=== PATIENT | female | born 1975 | race Caucasian/White ===

== ENCOUNTER 2024-12-20 23:13 | Inpatient (IN) | payer OTHER, SELFPAY ==
--- NOTE | ~2024-12-20 | CT_ITS ---
CT HEAD NON-CONTRAST Clinical History: left eye visual change Comparison: None Technique: Unenhanced axial images skull base to vertex Coronal, sagittal reformats CT images acquired with automatic exposure control for dose reduction DLP: 681 mGy-cm Findings: Sulci, ventricles: Unremarkable. No intracerebral hemorrhage. No evidence acute territorial infarct. No mass effect, midline shift. Bony calvarium intact. Visualized paranasal sinuses: Clear. Mastoid air cells: Clear. IMPRESSION: 1. No acute intracranial findings. Reviewed, dictated and finalized at location R.
[2024-12-20 23:07] VITALS: BP 119/89; PULSE 84; RESP 20; TEMP 37; O2SAT 100
--- OUTSIDE RECORDS SUMMARY | 2024-12-21 00:42 | XMS_ITS | Clinical Summary ---
Author Organization [facility] Address [facility] [place] [address] Care Team Providers Care 1St Pressman Name Role Phone None, Provider MD Primary Care Provider Unavaila ble Allergies No known active allergies Medications pantoprazole EC (PROTONIX) 40 MG tablet Take 1 tablet (40 mg total) by mouth daily. 30 tablet 07/05/2022 Active Active Problems Problem Noted Date Diagnosed Date Ingestion of disk battery, initial encounter Foreign body in stomach, initial encounter 07/03 Overview (07/04/2022): Added automatically from request for surgery [id number] Social History Tobacco Use Types Packs/Day Years Used Date Smoking Tobacco: Former Cigarettes 0.5 5 Smokeless Tobacco: Never Comments:Quit 2 months ago Humiliation, Afraid, Rape, and Kick questionnair e Answer Date Recorded Within the last year, have y ou been afraid of your partner or ex-partner? No 07/04/2022 Within the last year, have y ou been humiliated or emotionally abused in other ways by your partner or ex-partner? No Within the last year, have y ou been kicked, hit, slapped, or otherwise physically hurt by your partner or ex-partner? No 07/04/2022 Within the last year, have y ou been raped or forced to have any kind of sexual activity by your partner or ex-partner? No 07/04/2022 Overall Financial Resource Strain (CARDIA) Answe r Date Recorded How hard is it for you to pa y for the very basics like food, housing, medical care, and heating? Somewhat hard 07/04/2022 Hunger Vital Sign Answer Date Recorded Within the past 12 months, y ou worried that your food would run out before you got the money to buy more. Never true 07/04/19 23 Within the past 12 months, t he food you bought just didn't last and you didn't have money to get more. Never true 07/03/2022 PRAPARE - Transportation Answer Date Re corded In the past 12 months, has l ack of transportation kept you from medical appointments or from getting medications? No 06/07 In the past 12 months, has l ack of transportation kept you from meetings, work, or from getting things needed for daily living? No 07/04/2022 Housing Stability Vital Sign Answer Kirk e Recorded In the last 12 months, was t here a time when you were not able to pay the mortgage or rent on time? No 07/04/2022 In the last 12 months, how many places have you lived? 1 07/04/2022 In the last 12 months, was t here a time when you did not have a steady place to sleep or slept in a m[facility] (including now)? No 07/04/2022 Comments Unknown Sex and Gender Information Value Date Recorded Sex Assigned at Not on file Legal Sex Female 7:34 PM CDT Gender Identity Not on file Sexual Orientation Not on file Last Filed Vital Signs Vital Sign Reading Time Taken Comments Blood Pressure 121/67 07/12/2022 1:30 AM CDT Pulse 70 07/12/2022 12:42 AM CDT Temperature 36.8 C (98.2 F) 07/12/2022 12:42 AM CDT Respiratory Rate 20 07/12/2022 12:42 AM CDT Oxygen Saturation 100% 07/12/2022 12:50 AM CDT Inhaled Oxygen Concentration - - Weight 53.1 kg (117 lb) 07/12/2022 12:42 AM CDT Height 160 cm (5' 3) 07/12/2022 12:42 AM CDT Body Mass Index 20.73 07/12/2022 12:42 AM CDT Plan of Treatment Health Maintenance Due Date Last Done Comments Cervical Cancer Screening Pa p Smear (Age 30 to 64) Every 3 Years 1975 Colorectal Cancer Screening Colonoscopy (10 Years) 1975 Annual Physical 1978 Hepatitis C 1993 DTaP, Tdap and Td Vaccines ( 1 - Tdap) 1994 Hepatitis B Vaccines (1 of 3 - 19+ 3-dose series) 1994 Cervical Cancer Screening Pa p with HPV Testing (Age 30 to 64) Every 5 Years 2005 Cervical Cancer Screening with HPV 2005 Mammogram Screening 2015 COVID-19 Vaccine ( - 2023-2 5 season) 2024 Influenza Adult (#1) 2024 Hepatitis A Vaccines Aged Out No long er eligible based on patient's age to complete this topic Meningococcal B Vaccine Aged Out No l onger eligible based on patient's age to complete this topic Meningococcal Vaccine Aged Out No shashi charles eligible based on patient's age to complete this topic Pneumococcal Vaccine: Pediat rics (0 to 5 Years) and At-Risk Patients (6 to 49 Years) Aged Out No longer eligible b ased on patient's age to complete this topic RSV Immunizations Under 20 Months Aged Out No longer eligible based on patient's age to complete this topic Insurance [employer] Care Teams 1[facility] Pressman Relationship Specialty Start Date End Date None, Provider, MD PCP - General UNKNOWN PHYSICIAN SPECIALTY 07/03/22
--- NOTE | 2024-12-21 01:08 | ED_ITS ---
HPI - General Adult General Chief complaint: Eye Problems Stated complaint: Decreased vision L eye since 1800 Time Seen by Provider: 12/21/24 00:26 History of Present Illness HPI narrative: Patient a 49-year-old female who presents emergency department with chief complaint of possible MS flare patient reports that she has history of MS and is followed by Neurology in [place] the patient states she was in town and was incarcerated by August guillen patient reports that she has had changes in vision out of her left eye similar to whenever she has had exacerbations with her MS Related Data Allergies Allergy/AdvReac Type Severity Reaction Status Date / Time No Known Allergies Allergy Verified 12/20/24 23:23 Review of Systems 2 Review of Systems: A 10 system review of systems was completed on the patient and is negative except for what is stated in the HPI. Nursing and ancillary documentation was reviewed. Exam 2 Narrative: GENERAL: Well-appearing, well-nourished, and in no acute distress. HEAD: Normocephalic, atraumatic. EYES: PERRLA and EOMI. No corneal abrasion present interocular pressure 12 bedside ultrasound showed no retinal detachment ENT: Nares clear, no rhinorrhea or epistaxis. Mucous membranes moist. NECK: Supple. CHEST: Clear to auscultation. No respiratory distress. HEART: Regular rate and rhythm. No murmur heard. Normal peripheral pulses. ABDOMEN: Soft, nontender, nondistended, normal active bowel sounds. EXTREMITIES: Normal range of motion. No edema. SKIN: Warm, dry, no rash. NEURO: No focal deficits. Alert and oriented x3. PSYCH: Normal mood and affect. Course Vital Signs Vital signs: Vital Signs Temperature 37.0 C 12/20/24 23:07 Pulse Rate 84 12/20/24 23:07 Respiratory Rate 20 12/20/24 23:07 Blood Pressure 119/89 12/20/24 23:07 Pulse Oximetry 100 12/20/24 23:07 Oxygen Delivery Room Air 12/20/24 23:07 Temperature 37.0 C 12/20/24 23:07 Pulse Rate 84 12/20/24 23:07 Respiratory Rate 20 12/20/24 23:07 Blood Pressure 119/89 12/20/24 23:07 Pulse Oximetry 100 12/20/24 23:07 Oxygen Delivery Room Air 12/20/24 23:07 Medical Decision Making [facility] Narrative Medical decision making narrative: Differential diagnosis includes acute exacerbation of MS, visual changes, The logical exam showed no evidence of acute angle closure glaucoma no evidence of corneal abrasion The case was discussed with neurology who recommended starting IV steroids patient was given 1 g Solu-Medrol in the emergency department will be started on daily IV Solu-Medrol case was discussed with the hospitalist for admission and neuro consult Vital Signs Vital Signs: Vital Signs Temperature 37.0 C 12/20/24 23:07 Pulse Rate 84 12/20/24 23:07 Respiratory Rate 20 12/20/24 23:07 Blood Pressure 119/89 12/20/24 23:07 Pulse Oximetry 100 12/20/24 23:07 Oxygen Delivery Room Air 12/20/24 23:07 Temperature 37.0 C 12/20/24 23:07 Pulse Rate 84 12/20/24 23:07 Respiratory Rate 20 12/20/24 23:07 Blood Pressure 119/89 12/20/24 23:07 Pulse Oximetry 100 12/20/24 23:07 Oxygen Delivery Room Air 12/20/24 23:07 Lab Data 12/21/24 01:29 12/21/24 01:29 Labs: Lab Results 12/21/24 Range/Units 01:29 WBC 8.1 (4.5-10.0) K/mm3 RBC 4.05 L (4.2-5.4) M/mm3 Hgb 12.4 (12.0-15.0) g/dL Hct 37.9 (37.0-47.0) % MCV 93.6 (80-100) fl MCH 30.6 (26-34) pg MCHC 32.7 (32-36) g/dl RDW 13.2 (11.5-14.5) % Plt Count 292 (150-375) k/mm3 MPV 9.0 (7.4-10.4) fl Immature Gran % (Auto) 0.2 (0-0.5) % Neut % (Auto) 74.6 H (45.5-73.1) % Lymph % (Auto) 18.0 L (18.3-44.2) % [place] % (Auto) 6.5 (2.6-8.5) % Eos % (Auto) 0.2 (0-4.4) % Baso % (Auto) 0.5 (0.2-1.2) % Lymph # (Auto) 1.45 (0.9-3.2) K/mm3 [place] # (Auto) 0.5 (0.1-0.6) K/mm3 Eos # (Auto) 0.0 (0-0.3) K/mm3 Baso # (Auto) 0.0 (0.0-0.1) K/mm3 Abs Immat Gran (auto) 0.02 (0.00-0.031) K/mm3 Absolute Neuts (auto) 6.0 (1.3-6.7) K/mm3 Absolute Nucleated RBC 0.000 (0.0-0.012) K/mm3 Nucleated RBC % 0.0 (0.0-0.2) % ESR 15 (0-20) mm/hr Sodium 139 (137-145) mmol/L Potassium 4.0 (3.4-5.0) mmol/L Chloride 105 (98-107) mmol/L Carbon Dioxide 27 (22-30) mmol/L Anion Gap 7 (4-12) mmol/L BUN 14 (7-17) mg/dL Creatinine 0.66 L (0.7-1.0) mg/dL Estim Creat Clear Calc 73 ml/min Estimated GFR > 60 (59 - ) Glucose 100 (65-110) mg/dL Calcium 8.5 (8.4-10.2) mg/dL Magnesium 2.4 H (1.6-2.3) mg/dL Total Bilirubin 0.2 (0.2-1.3) mg/dL AST 21 (14-36) U/L ALT 16 (6-35) U/L Alkaline Phosphatase 67 (38-126) U/L C-Reactive Protein < 0.5 (<1.0) mg/dL Total Protein 6.5 (6.3-8.2) g/dL Albumin 3.8 (3.5-5.1) g/dL Urine Color Yellow (Yellow) Urine Appearance Cloudy H (Clear) Urine pH >=9.0 H (5.0-9.0) Ur Specific Section 1.029 (1.001-1.035) Urine Protein 1+ H (Negative) mg/dL Urine Glucose (UA) Negative (Negative) mg/dL Urine Ketones Trace H (Negative) mg/dL Ur Blood (Man) 2+ H (Negative) Urine Nitrate Negative (Negative) Urine Bilirubin Negative (Negative) Urine Urobilinogen 1.0 (<2.0) mg/dL Leukocyte Esterase Rfl 1+ H (Negative) THAI/UL Urine RBC 6-10 H (0-2) /hpf Urine WBC 6-10 H (0-3) /hpf Ur Squamous Epith Cells Moderate (Few) /hpf Urine Bacteria None seen /hpf Urine Casts 0-2 Discharge Plan Discharge Clinical Impression: Exacerbation of multiple sclerosis Patient Disposition: Still a Patient Condition: Stable Patient Language: Danish Follow-up/Referrals: UNKNOWN,DOCTOR [Primary Care Provider] Time of Disposition: 02:24
[2024-12-21 01:35] LABS: Hematocrit 37.9 % (37.0-47.0); Hemoglobin 12.4 g/dL (12.0-15.0); Immature Granulocyte Percent A 0.2 % (0-0.5); Lymphocytes Absolute Auto 1.45 K/mm3 (0.9-3.2); Mean Corpuscular HGB Conc 32.7 g/dl (32-36); Mean Corpuscular Hemoglobin 30.6 pg (26-34); Mean Corpuscular Volume 93.6 fl (80-100); Nucleated Red Blood Cells Absolute Auto 0.000 K/mm3 (0.0-0.012); Nucleated Red Blood Cells Perc 0.0 % (0.0-0.2); Platelet Count Result 292 k/mm3 (150-375); Red Blood Count 4.05 M/mm3 (4.2-5.4); White Blood Count 8.1 K/mm3 (4.5-10.0)
[2024-12-21 01:42] LABS: Add Urine Microscopic? YES; Appearance Urine Cloudy (Clear); Glucose Urine UA Negative (Negative); Leukocyte Esterase Ur 1+ LEU/UL (Negative); Nitrate Urine Negative (Negative); Non Pathogenic Casts 0-2; Specific Grav Ur 1.029 (1.001-1.035)
[2024-12-21 01:47] LABS: Alanine Aminotransferase 16 U/L (6-35); Albumin Level 3.8 g/dL (3.5-5.1); Alkaline Phosphatase 67 U/L (38-126); Anion Gap 7 mmol/L (4-12); Aspartate Amino Transferase 21 U/L (14-36); Bilirubin,Total 0.2 mg/dL (0.2-1.3); Blood Urea Nitrogen 14 mg/dL (7-17); Calcium 8.5 mg/dL (8.4-10.2); Carbon Dioxide 27 mmol/L (22-30); Chloride 105 mmol/L (98-107); Estimated CRCL calculation 73 ml/min; Estimated Glomerular Filt Rate > 60; Glucose 100 mg/dL (65-110); Magnesium 2.4 mg/dL (1.6-2.3); Potassium 4.0 mmol/L (3.4-5.0); Sodium 139 mmol/L (137-145); Total Protein 6.5 g/dL (6.3-8.2)
--- NOTE | 2024-12-21 01:50 | PC.NURSE ---
Pt initially accompanied by PD Tawana states that since pt is potentially being admitted or going to be in the ER for the night there is no need for them to stay at the moment. They state to call if pt attempts to elope or gets discharged.
[2024-12-21 01:58] LABS: CRP < 0.5 mg/dL (<1.0)
--- NOTE | 2024-12-21 04:10 | PC.NURSE ---
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 Pt told to leave all the items with her as those items are not allowed in the hospital and to leave the meds that she arrived with as those won't be needed during her stay either. Pt agreed to leave those belongings with .
[2024-12-21 04:19] VITALS: BMI 21.8
--- NOTE | 2024-12-21 04:32 | ADMGEN ---
This patient, Rasheeda Vásquez, was admitted to Medical Room 343-01. Patient/family oriented to hospital policies and general routines including ID bracelet, bed and alarms, visiting hours, pain management, procedures, bathroom and other care routines, personal items, smoking policy, room service/diet, and visiting hours. Information on how to activate the Rapid Response Team has been discussed. Patient/Family are encouraged to report perceived risks to care and to ask questions if they do not understand what they are told or what they should do.
[2024-12-21 06:00] VITALS: BP 123/80; PULSE 70; RESP 20; TEMP 36.4; O2SAT 100
[2024-12-21] MEDS: ENOXAPARIN 40 MG/0.4 ML SYRINGE SUB-Q (08:27)
[2024-12-21] MEDS: PREGABALIN (*CRX) 50 MG CAPSULE 200 MG PO ×2 (08:27→17:23)
[2024-12-21] MEDS: PANTOPRAZOLE 40 MG TABLET PO ×2 (08:27→21:57)
[2024-12-21] MEDS: LACTASE 3,000 UNIT TABLET 3000 UNIT PO (08:34)
[2024-12-21] MEDS: SIMETHICONE 125 MG CHEW TAB PO (08:34)
[2024-12-21] MEDS: BUPRENORPHINE HCL (*CRX) 2 MG SUBLINGUAL TABLET SUBLINGUAL (13:37)
[2024-12-21] MEDS: buPROPion HCL XL (24 HR) 150 MG TABCR 300 MG PO (13:37)
[2024-12-21 14:00] VITALS: BP 128/73; PULSE 87; RESP 18; TEMP 36.8; O2SAT 100
--- NOTE | 2024-12-21 15:06 | PM.IMHP ---
H&P: HPI History of Present Illness Date/Time: 12/21/24 15:06 Chief Complaint: vision changes Narrative: Patient is a 49 year old female with PMH of multiple sclerosis, PTSD and spinal stenosis. Patient presented to the ED with complaints of a MS flare which is presenting as changes in vision to her left eye. Patient reports she [facility]. Patient was given 1 gram IV solumedrol in the ER and admitted for further evaluation and treatment. Patient was seen by neurology, however she asked not to see Dr. Hou again. There are no records in our system for this patient. Patient's home medication list was confirmed by the [facility] in [place] for the nurse and home medications were updated at that time. Records are being requested from the ID related to patients neurology records, brain MRIs and any spinal tap procedures she has had done. Case discussed with neurology and he recommended to complete 5 days of high dose steroids for patients left optic neuritis. Patient agrees with this plan. Patient would like a PT/OT consult due to difficulty walking due to foot pain and balance. Order placed. Review of Systems Review of Systems: All systems reviewed & are unremarkable except as noted in HPI and below PMFSH Past Medical History Medical History (Updated 12/21/24 @ 21:15 by Lori Kingston APRN) Left optic neuritis Family History Family History Mother Breast cancer Grandparent Colon cancer Social History Social History Smoking status: Current some day smoker Tobacco type: e-cigarettes/vaping Alcohol intake: never Substance use: never Lack of Transportation: No Lack of Food: Never True Current Housing: I Have Housing Concerned About Future Housing: No Difficulty Paying Gas/Electric Bills: No Difficulty Paying for Meds: No Currently Unemployed: No Education: Bachelor's Degree Difficulty w/ Childcare or Family Care: No Spiritual care concerns: No Meds Home Medications and Allergies Home Medications ?Medication ?Instructions ?Recorded ?Confirmed ?Type buprenorphine 2 mg-naloxone 0.5 mg 1 tablet sublingual DAILY 12/21/24 12/21/24 History sublingual tablet bupropion HCl 300 mg 24 hr tablet, 300 mg PO DAILY 12/21/24 12/21/24 History extended release (Wellbutrin XL) glatiramer 20 mg/mL subcutaneous 20 mg subcut 3XW 12/21/24 12/21/24 History syringe ([place]one) hydroxyzine HCl 50 mg tablet 50 mg PO HS 12/21/24 12/21/24 History lactase 3,000 unit tablet 3,000 unit PO QID PRN lactose 12/21/24 12/21/24 History intolerance ondansetron HCl 8 mg tablet 8 mg PO Q8H PRN nausea and vomiting 12/21/24 12/21/24 History oxcarbazepine 150 mg tablet 150 mg PO HS 12/21/24 12/21/24 History pantoprazole 40 mg tablet,delayed 40 mg PO BID 12/21/24 12/21/24 History release (Protonix) prazosin 1 mg capsule 1 mg PO HS 12/21/24 12/21/24 History pregabalin 100 mg capsule (Lyrica) 100 mg PO HS 12/21/24 12/21/24 History pregabalin 200 mg capsule (Lyrica) 200 mg PO BID 12/21/24 12/21/24 History prochlorperazine maleate 10 mg 10 mg PO Q8H PRN nausea and 12/21/24 12/21/24 History tablet (Compazine) vomiting propranolol 10 mg tablet 30 mg PO QAM 12/21/24 12/21/24 History propranolol 20 mg tablet 10 mg PO HS 12/21/24 12/21/24 History sennosides 8.6 mg tablet (Senokot) 8.6 mg PO BID PRN constipation 12/21/24 12/21/24 History simethicone 125 mg capsule (Gas 125 mg PO DAILY PRN abdominal 12/21/24 12/21/24 History Relief (simethicone)) distention sumatriptan succinate 50 mg PO PRN PRN migraine headache 12/21/24 12/21/24 History topiramate 25 mg tablet (Topamax) 25 mg PO HS 12/21/24 12/21/24 History trazodone 100 mg tablet 100 mg PO HS 12/21/24 12/21/24 History Allergies Allergy/AdvReac Type Severity Reaction Status Date / Time No Known Allergies Allergy Verified 12/21/24 04:34 Vital Signs Vital Signs - 24 hr 10/15/25 23:07 12/21/24 06:00 12/21/24 08:22 Temperature 98.6 F 97.6 F Pulse Rate 84 70 Respiratory Rate 20 20 Blood Pressure 119/89 123/80 Pulse Oximetry 100 100 Oxygen Delivery Room Air Room Air 12/21/24 14:00 Temperature 98.2 F Pulse Rate 87 Respiratory Rate 18 Blood Pressure 128/73 Pulse Oximetry 100 Oxygen Delivery Exam Const: General: comfortable and no acute distress HENMT: Face/Nose/Sinus: Normal nares present Mouth: Yes moist mucous membranes Eyes: General: appearance normal, both eyes and all related structures Sclera: sclerae normal Neck: Neck: supple Resp: Effort & Inspection: normal respiratory effort Auscultation: clear to auscultation bilaterally Cardio: Rate: regular rate Rhythm: regular rhythm GI: GI Palp: Yes Soft to palpation Auscultation: normal bowel sounds Skin: General skin exam: normal color and no rashes or lesions noted Neuro: Speech: normal speech Motor exam (neuro): 5/5 motor strength present throughout Sensory Exam: normal sensation Extrem: General: normal to inspection Psych: Mental Status: mental status grossly normal Affect: Anxious affect present H&P: Results Labs Labs: Short CBC 12/21/24 Range/Units 01:29 WBC 8.1 (4.5-10.0) K/mm3 Hgb 12.4 (12.0-15.0) g/dL Hct 37.9 (37.0-47.0) % Plt Count 292 (150-375) k/mm3 BMP 12/21/24 01:29 Sodium 139 Potassium 4.0 Chloride 105 Carbon Dioxide 27 BUN 14 Creatinine 0.66 L Glucose 100 Calcium 8.5 Liver Function 12/21/24 Range/Units 01:29 Total Bilirubin 0.2 (0.2-1.3) mg/dL AST 21 (14-36) U/L ALT 16 (6-35) U/L Alkaline Phosphatase 67 (38-126) U/L Albumin 3.8 (3.5-5.1) g/dL Urine 12/21/24 Range/Units 01:29 Urine Color Yellow (Yellow) Urine Appearance Cloudy H (Clear) Urine pH >=9.0 H (5.0-9.0) Ur Specific [place] 1.029 (1.001-1.035) Urine Protein 1+ H (Negative) mg/dL Urine Glucose (UA) Negative (Negative) mg/dL Assessment and Plan Assessment and plan (1) Left optic neuritis: Code(s): H46.9 - Unspecified optic neuritis Status: Acute Assessment and Plan: Neurology was consulted asked nurse [facility] notes, MRI brain, LP procedures and results eye patch PRN for comfort continue solu medrol 1 gram Q 24 hours x 5 doses discussed with neurology Dr. Cox consult Dr. Jean Baptiste when he takes over call per patient request (2) Exacerbation of multiple sclerosis: Code(s): G35.D - Multiple sclerosis, unspecified Status: Acute Assessment and Plan: see above (3) PTSD (post-traumatic stress disorder): Code(s): F43.10 - Post-traumatic stress disorder, unspecified Status: Acute Assessment and Plan: continue home medications including bupropion, hydroxyzine, oxcarbazepine, prazosin, propranolol, topiramate and trazodone monitor moods and behaviors Quality VTE Prophylaxis VTE prophylaxis: pharmacologic ordered
--- NOTE | 2024-12-21 17:45 | WPDNEURCNPN ---
Assessment and Plan Assessment and plan (1) Left optic neuritis: Code(s): H46.9 - Unspecified optic neuritis Status: Acute (2) Exacerbation of multiple sclerosis: Code(s): G35.D - Multiple sclerosis, unspecified Status: Acute Plan we do not have the diagnostic workup for multiple sclerosis which will be very important in terms of the further treatment considering that her symptoms are confined to the left eye at this time. I noted that she has been started on Solu-Medrol 1 g IV daily.. It can be given 1 g daily for 5 days after that a slow taper down with oral prednisone for 1 week can be given. Thereafter she should follow up with her neurologist and physicians in [place] where Jesse came from. I spoke to the hospitalist and advised to try and get records from [place] possible. Consult date: 12/21/24 HPI: Rasheeda Vásquez is a 49 year old female Came into the hospital with the complaints of the loss of vision or decreased vision in the left eye. She was diagnosed to have multiple sclerosis in June this year although she has had symptoms for nearly 2 years but it took some time for them to diagnose it. She apparently has had a MRI and spinal tap the results of which were not available to me. She lives and a follow-up with the physicians in [place] at the [facility]. She was in [facility] for some time but now has been released. She was started on dimethyl fumarate initially but today then after that it has been changed over to Copaxone. She was given propranolol for the tremor of the hands. She apparently had some lesion found in the thoracic spine according to her. Review of Systems Review of Systems: No history of recent febrile illness or trauma. This records and workup were not available. No other symptoms. [facility] Past Medical History Medical History (Updated 12/21/24 @ 17:49 by Federico Cox MD) Left optic neuritis Family History Family History Mother Breast cancer Grandparent Colon cancer Social History Social History Smoking status: Current some day smoker Tobacco type: e-cigarettes/vaping Alcohol intake: never Substance use: never Lack of Transportation: No Lack of Food: Never True Current Housing: I Have Housing Concerned About Future Housing: No Difficulty Paying Gas/Electric Bills: No Difficulty Paying for Meds: No Currently Unemployed: No Education: Bachelor's Degree Difficulty w/ Childcare or Family Care: No Spiritual care concerns: No Meds Home Medications and Allergies Home Medications ?Medication ?Instructions ?Recorded ?Confirmed ?Type buprenorphine 2 mg-naloxone 0.5 mg 1 tablet sublingual DAILY 12/21/24 12/21/24 History sublingual tablet bupropion HCl 300 mg 24 hr tablet, 300 mg PO DAILY 12/21/24 12/21/24 History extended release (Wellbutrin XL) glatiramer 20 mg/mL subcutaneous 20 mg subcut 3XW 12/21/24 12/21/24 History syringe (Copaxone) hydroxyzine HCl 50 mg tablet 50 mg PO HS 12/21/24 12/21/24 History lactase 3,000 unit tablet 3,000 unit PO QID PRN lactose 12/21/24 12/21/24 History intolerance ondansetron HCl 8 mg tablet 8 mg PO Q8H PRN nausea and vomiting 12/21/24 12/21/24 History oxcarbazepine 150 mg tablet 150 mg PO HS 12/21/24 12/21/24 History pantoprazole 40 mg tablet,delayed 40 mg PO BID 12/21/24 12/21/24 History release (Protonix) prazosin 1 mg capsule 1 mg PO HS 12/21/24 12/21/24 History pregabalin 100 mg capsule (Lyrica) 100 mg PO HS 12/21/24 12/21/24 History pregabalin 200 mg capsule (Lyrica) 200 mg PO BID 12/21/24 12/21/24 History prochlorperazine maleate 10 mg 10 mg PO Q8H PRN nausea and 12/21/24 12/21/24 History tablet (Compazine) vomiting propranolol 10 mg tablet 30 mg PO QAM 12/21/24 12/21/24 History propranolol 20 mg tablet 10 mg PO HS 12/21/24 12/21/24 History sennosides 8.6 mg tablet (Senokot) 8.6 mg PO BID PRN constipation 12/21/24 12/21/24 History simethicone 125 mg capsule (Gas 125 mg PO DAILY PRN abdominal 12/21/24 12/21/24 History Relief (simethicone)) distention sumatriptan succinate 50 mg PO PRN PRN migraine headache 12/21/24 12/21/24 History topiramate 25 mg tablet (Topamax) 25 mg PO HS 12/21/24 12/21/24 History trazodone 100 mg tablet 100 mg PO HS 12/21/24 12/21/24 History Allergies Allergy/AdvReac Type Severity Reaction Status Date / Time No Known Allergies Allergy Verified 12/21/24 04:34 Vital Signs Vital Signs - 24 hr 12/20/24 23:07 12/21/24 06:00 12/21/24 08:22 Temperature 98.6 F 97.6 F Pulse Rate 84 70 Respiratory Rate 20 20 Blood Pressure 119/89 123/80 Pulse Oximetry 100 100 Oxygen Delivery Room Air Room Air 12/21/24 14:00 Temperature 98.2 F Pulse Rate 87 Respiratory Rate 18 Blood Pressure 128/73 Pulse Oximetry 100 Oxygen Delivery Exam Narrative: Fully conscious alert oriented to self time place and person. His speech is fluent articulate. No aphasia or dysarthria. Examination head and neck was unremarkable. Cranial nerves show pupils were equal and there is a mild afferent pupillary defect on the left but consensual reflex was normal. The right pupil reacted well. No nuchal rigidity. Other cranial nerves within normal limits we motor system normal power and tone in both upper lower limbs. Reflexes appears somewhat brisk at the knees and ankles compared to upper limb further 2/4 and a about 3 or 4 at the knees. No definite sensory loss. no involuntary movements Seen. Results Labs 12/21/24 01:29 12/21/24 01:29 Labs: Short CBC 12/21/24 Range/Units 01:29 WBC 8.1 (4.5-10.0) K/mm3 Hgb 12.4 (12.0-15.0) g/dL Hct 37.9 (37.0-47.0) % Plt Count 292 (150-375) k/mm3 BMP 12/21/24 01:29 Sodium 139 Potassium 4.0 Chloride 105 Carbon Dioxide 27 BUN 14 Creatinine 0.66 L Glucose 100 Calcium 8.5 Liver Function 12/21/24 Range/Units 01:29 Total Bilirubin 0.2 (0.2-1.3) mg/dL AST 21 (14-36) U/L ALT 16 (6-35) U/L Alkaline Phosphatase 67 (38-126) U/L Albumin 3.8 (3.5-5.1) g/dL Urine 12/21/24 Range/Units 01:29 Urine Color Yellow (Yellow) Urine Appearance Cloudy H (Clear) Urine pH >=9.0 H (5.0-9.0) Ur Specific [place] 1.029 (1.001-1.035) Urine Protein 1+ H (Negative) mg/dL Urine Glucose (UA) Negative (Negative) mg/dL
[2024-12-21 21:21] VITALS: BP 130/85; PULSE 85; RESP 20; TEMP 36.8; O2SAT 100
[2024-12-21 21:58] VITALS: PULSE 86
[2024-12-21] MEDS: PROPRANOLOL HCL 10 MG TABLET PO (21:58)
[2024-12-21] MEDS: TOPIRAMATE 25 MG TABLET PO (21:58)
[2024-12-21] MEDS: PRAZOSIN HCL 1 MG CAPSULE PO (21:58)
[2024-12-22 06:00] VITALS: BP 115/76; PULSE 69; RESP 20; TEMP 36.6; O2SAT 100
[2024-12-22 08:10] VITALS: PULSE 86
[2024-12-22] MEDS: PANTOPRAZOLE 40 MG TABLET PO ×2 (08:10→21:48)
[2024-12-22] MEDS: SIMETHICONE 125 MG CHEW TAB PO (08:10)
[2024-12-22] MEDS: ENOXAPARIN 40 MG/0.4 ML SYRINGE SUB-Q (08:10)
[2024-12-22] MEDS: PROPRANOLOL HCL 10 MG TABLET 30 MG PO (08:10)
[2024-12-22] MEDS: BUPRENORPHINE HCL (*CRX) 2 MG SUBLINGUAL TABLET SUBLINGUAL (08:10)
[2024-12-22] MEDS: buPROPion HCL XL (24 HR) 150 MG TABCR 300 MG PO (08:10)
[2024-12-22] MEDS: LACTASE 3,000 UNIT TABLET 3000 UNIT PO (08:10)
[2024-12-22] MEDS: PREGABALIN (*CRX) 50 MG CAPSULE 200 MG PO ×2 (08:10→17:37)
[2024-12-22 14:00] VITALS: BP 116/70; PULSE 76; RESP 16; TEMP 36.8; O2SAT 98
--- NOTE | 2024-12-22 14:24 | PM.IMPN ---
Progress Note: A&P Assessment and Plan (1) Left optic neuritis: Code(s): H46.9 - Unspecified optic neuritis Status: Acute Assessment and Plan: Neurology was consulted asked nurse [facility] notes, MRI brain, LP procedures and results eye patch PRN for comfort continue solu medrol 1 gram Q 24 hours x 5 doses, last dose Wednesday discussed with neurology Dr. Cox consult Dr. Jean Baptiste when he takes over call per patient request, starts Wednesday (2) Exacerbation of multiple sclerosis: Code(s): G35.D - Multiple sclerosis, unspecified Status: Acute Assessment and Plan: see above (3) PTSD (post-traumatic stress disorder): Code(s): F43.10 - Post-traumatic stress disorder, unspecified Status: Acute Assessment and Plan: continue home medications including bupropion, hydroxyzine, oxcarbazepine, prazosin, propranolol, topiramate and trazodone monitor moods and behaviors (4) RLS (restless legs syndrome): Code(s): G25.81 - Restless legs syndrome Status: Acute Plan start ropinirole at HS Subjective Date/time seen: 12/22/24 14:24 Interval history: Patient seen for a follow up visit. Patient lying in bed, in no acute distress. Patient reports no worsening in left eye vision. Patient denies acute pain. Patient continues on IV solu-medrol 1 gram daily x [address] Jean Baptiste will be consulted to see patient tomorrow. Patient with complaints of restless leg syndrome and reports her doctor had sent something to the pharmacy but she can't remember the name and it was not provided by the pharmacy yesterday to the nurse. I discussed with patient that ropinirole is for restless leg syndrome and I will start her on that medication at bedtime, she is agreeable. PT/OT ordered. Review of Systems Review of Systems: All systems reviewed & are unremarkable except as noted in HPI and below Exam Const: General: comfortable and no acute distress HENMT: Face/Nose/Sinus: Normal nares present Mouth: Yes moist mucous membranes Eyes: General: appearance normal, both eyes and all related structures Sclera: sclerae normal Neck: Neck: supple Resp: Effort & Inspection: normal respiratory effort Auscultation: clear to auscultation bilaterally Cardio: Rate: regular rate Rhythm: regular rhythm GI: Auscultation: normal bowel sounds Skin: General skin exam: normal color and no rashes or lesions noted Neuro: Speech: normal speech Motor exam (neuro): 5/5 motor strength present throughout Sensory Exam: normal sensation Extrem: General: normal to inspection Psych: Mental Status: mental status grossly normal Affect: Anxious affect present Objective Data Vital Signs Vital Signs: Vital Signs - 24 hr 12/21/24 21:21 12/21/24 21:58 12/22/24 06:00 Temperature 98.2 F 97.8 F Pulse Rate 85 86 69 Respiratory Rate 20 20 Blood Pressure 130/85 115/76 Pulse Oximetry 100 100 Oxygen Delivery 12/22/24 08:09 12/22/24 08:10 Temperature Pulse Rate 86 Respiratory Rate Blood Pressure Pulse Oximetry Oxygen Delivery Room Air Intake/Output Intake/Output: Intake & Output 12/19/24 12/20/24 12/21/24 12/22/24 23:59 23:59 23:59 23:59 Intake Total 1072 480 Output Total 400 Balance 1072 80 Meds/Results Medications: Active Medications Generic Name Dose Route Start Last Admin Trade Name Freq PRN Reason Stop Dose Admin Acetaminophen 650 mg 12/21/24 07:43 Acetaminophen 325 Mg Tablet PO Q4H PRN Mild Pain (1-3) or Fever Buprenorphine HCl 2 mg 12/21/24 14:00 12/22/24 08:10 Buprenorphine Hcl (*Crx) 2 Mg Sublingual Tablet SUBLINGUAL 2 mg DAILY PATRICIO Administration Bupropion HCl 300 mg 12/21/24 09:00 12/22/24 08:10 Bupropion Hcl Xl (24 Hr) 150 Mg Tabcr PO 300 mg DAILY PATRICIO Administration Enoxaparin Sodium 40 mg 12/21/24 09:00 12/22/24 08:10 Enoxaparin 40 Mg/0.4 Ml Syringe SUB-Q 40 mg DAILY PATRICIO Administration Hydroxyzine HCl 50 mg 12/21/24 21:00 12/22/24 04:46 Hydroxyzine Hcl 25 Mg Tablet PO Not Given HS PATRICIO Methylprednisolone Sodium 116 mls @ 200 mls/hr 12/22/24 08:00 12/22/24 08:11 Succinate 1,000 mg/ Dextrose IVPB 12/26/24 08:35 200 mls/hr Q24H PATRICIO Administration Lactase 3,000 unit 12/21/24 07:44 12/22/24 08:10 Lactase 3,000 Unit Tablet PO 3,000 unit QID PRN Administration Lactose Intolerance Ondansetron HCl 4 mg 12/21/24 02:21 Ondansetron Inj 4 Mg/2 Ml Vial IV PUSH Q4H PRN Nausea Oxcarbazepine 150 mg 12/22/24 21:00 Oxcarbazepine 150 Mg Tablet PO HS PATRICIO Pantoprazole Sodium 40 mg 12/21/24 09:00 12/22/24 08:10 Pantoprazole 40 Mg Tablet PO 40 mg Q12HR PATRICIO Administration Prazosin HCl 1 mg 12/21/24 21:00 12/21/24 21:58 Prazosin Hcl 1 Mg Capsule PO 1 mg HS PATRICIO Administration Pregabalin 200 mg 12/21/24 09:00 12/22/24 08:10 Pregabalin (*Crx) 50 Mg Capsule PO 200 mg BID PATRICIO Administration Pregabalin 100 mg 12/22/24 21:00 Pregabalin (*Crx) 50 Mg Capsule PO HS PATRICIO Propranolol HCl 10 mg 12/21/24 21:00 12/21/24 21:58 Propranolol Hcl 10 Mg Tablet PO 10 mg HS PATRICIO Administration Propranolol HCl 30 mg 12/22/24 09:00 12/22/24 08:10 Propranolol Hcl 10 Mg Tablet PO 30 mg QAM PATRICIO Administration Senna 8.6 mg 12/21/24 07:44 Sennosides 8.6 Mg Tablet PO BID PRN Constipation Simethicone 125 mg 12/21/24 07:44 12/22/24 08:10 Simethicone 125 Mg Chew Tab PO 125 mg DAILY PRN Administration Abdominal Distention Sumatriptan Succinate 50 mg 12/22/24 07:51 Sumatriptan Succinate 25 Mg Tablet PO PRN PRN Migraine Headache Topiramate 25 mg 12/21/24 21:00 12/21/24 21:58 Topiramate 25 Mg Tablet PO 25 mg HS PATRICIO Administration Trazodone HCl 100 mg 12/21/24 21:00 12/21/24 21:58 Trazodone Hcl 50 Mg Tablet PO 100 mg HS PATRICIO Administration Radiology Results: ITS Impressions Head CT 12/21/24 05:14 IMPRESSION: 1. No acute intracranial findings. Quality VTE Prophylaxis VTE prophylaxis: pharmacologic ordered
[2024-12-22] MEDS: LIDOCAINE 5% PATCH 2 PATCH TRANSDERM (18:35)
[2024-12-22 21:46] VITALS: PULSE 74
[2024-12-22] MEDS: PROPRANOLOL HCL 10 MG TABLET PO (21:46)
[2024-12-22] MEDS: PRAZOSIN HCL 1 MG CAPSULE PO (21:47)
[2024-12-22] MEDS: TOPIRAMATE 25 MG TABLET PO (21:47)
[2024-12-22] MEDS: rOPINIRole HCL 0.125 MG TABLET PO (21:47)
[2024-12-22] MEDS: PREGABALIN (*CRX) 50 MG CAPSULE 100 MG PO (21:48)
[2024-12-22 22:00] VITALS: BP 118/56; PULSE 91; RESP 20; TEMP 36.6; O2SAT 94
[2024-12-23 06:00] VITALS: BP 105/57; PULSE 76; RESP 20; TEMP 36.7; O2SAT 97
[2024-12-23 06:07] LABS: Hematocrit 32.8 % (37.0-47.0); Hemoglobin 10.6 g/dL (12.0-15.0); Immature Granulocyte Percent A 0.5 % (0-0.5); Lymphocytes Absolute Auto 1.00 K/mm3 (0.9-3.2); Mean Corpuscular HGB Conc 32.3 g/dl (32-36); Mean Corpuscular Hemoglobin 31.0 pg (26-34); Mean Corpuscular Volume 95.9 fl (80-100); Nucleated Red Blood Cells Absolute Auto 0.000 K/mm3 (0.0-0.012); Nucleated Red Blood Cells Perc 0.0 % (0.0-0.2); Platelet Count Result 269 k/mm3 (150-375); Red Blood Count 3.42 M/mm3 (4.2-5.4); White Blood Count 13.1 K/mm3 (4.5-10.0)
[2024-12-23 06:27] LABS: Alanine Aminotransferase 17 U/L (6-35); Albumin Level 3.2 g/dL (3.5-5.1); Alkaline Phosphatase 63 U/L (38-126); Anion Gap 7 mmol/L (4-12); Aspartate Amino Transferase 17 U/L (14-36); Bilirubin,Total 0.1 mg/dL (0.2-1.3); Blood Urea Nitrogen 13 mg/dL (7-17); Calcium 8.0 mg/dL (8.4-10.2); Carbon Dioxide 25 mmol/L (22-30); Chloride 105 mmol/L (98-107); Estimated CRCL calculation 63 ml/min; Estimated Glomerular Filt Rate > 60; Glucose 122 mg/dL (65-110); Potassium 3.4 mmol/L (3.4-5.0); Sodium 137 mmol/L (137-145); Total Protein 5.6 g/dL (6.3-8.2)
[2024-12-23 08:50] VITALS: PULSE 61; RESP 20; O2SAT 96
[2024-12-23] MEDS: ENOXAPARIN 40 MG/0.4 ML SYRINGE SUB-Q (08:50)
[2024-12-23] MEDS: PREGABALIN (*CRX) 50 MG CAPSULE 200 MG PO ×2 (08:50→17:51)
[2024-12-23] MEDS: PANTOPRAZOLE 40 MG TABLET PO ×2 (08:51→20:52)
[2024-12-23] MEDS: buPROPion HCL XL (24 HR) 150 MG TABCR 300 MG PO (08:51)
[2024-12-23] MEDS: BUPRENORPHINE HCL (*CRX) 2 MG SUBLINGUAL TABLET SUBLINGUAL (08:51)
[2024-12-23 08:52] VITALS: PULSE 72
[2024-12-23] MEDS: PROPRANOLOL HCL 10 MG TABLET 30 MG PO (08:52)
--- NOTE | 2024-12-23 09:00 | PM.IMPN ---
Progress Note: A&P Assessment and Plan (1) Left optic neuritis: Code(s): H46.9 - Unspecified optic neuritis Status: Acute Assessment and Plan: Neurology was consulted asked nurse [facility] related to [facility] neurology notes, MRI brain, LP procedures and results eye patch PRN for comfort continue solu medrol 1 gram Q 24 hours x 5 doses, last dose Wednesday discussed with neurology Dr. Cox consult Dr. Jean Baptiste when he takes over call per patient request, starts Wednesday (2) Exacerbation of multiple sclerosis: Code(s): G35.D - Multiple sclerosis, unspecified Status: Acute Assessment and Plan: see above (3) PTSD (post-traumatic stress disorder): Code(s): F43.10 - Post-traumatic stress disorder, unspecified Status: Acute Assessment and Plan: continue home medications including bupropion, hydroxyzine, oxcarbazepine, prazosin, propranolol, topiramate and trazodone monitor moods and behaviors (4) RLS (restless legs syndrome): Code(s): G25.81 - Restless legs syndrome Status: Acute Plan start ropinirole at HS Subjective Date/time seen: 12/23/24 09:00 Interval history: Patient seen for a follow up visit. Patient lying in bed, in no acute distress. Patient reports no worsening in left eye vision. Patient denies acute pain. Patient continues on IV solu-medrol 1 gram daily x [address] Jean Baptiste will be consulted to see patient tomorrow. Patient with complaints of restless leg syndrome and reports her doctor had sent something to the pharmacy but she can't remember the name and it was not provided by the pharmacy yesterday to the nurse. I discussed with patient that ropinirole is for restless leg syndrome and I will start her on that medication at bedtime, she is agreeable. PT/OT ordered. Review of Systems Review of Systems: All systems reviewed & are unremarkable except as noted in HPI and below Exam Const: General: comfortable and no acute distress HENMT: Face/Nose/Sinus: Normal nares present Mouth: Yes moist mucous membranes Eyes: General: appearance normal, both eyes and all related structures Sclera: sclerae normal Neck: Neck: supple Resp: Effort & Inspection: normal respiratory effort Auscultation: clear to auscultation bilaterally Cardio: Rate: regular rate Rhythm: regular rhythm GI: Auscultation: normal bowel sounds Skin: General skin exam: normal color and no rashes or lesions noted Neuro: Speech: normal speech Motor exam (neuro): 5/5 motor strength present throughout Sensory Exam: normal sensation Extrem: General: normal to inspection Psych: Mental Status: mental status grossly normal Affect: Anxious affect present Objective Data Vital Signs Vital Signs: Vital Signs - 24 hr 12/22/24 14:00 12/22/24 20:00 12/22/24 21:46 Temperature 98.3 F Pulse Rate 76 74 Respiratory Rate 16 Blood Pressure 116/70 Pulse Oximetry 98 Oxygen Delivery Room Air 12/22/24 22:00 12/23/24 06:00 12/23/24 08:52 Temperature 97.8 F 98.0 F Pulse Rate 91 76 72 Respiratory Rate 20 20 Blood Pressure 118/56 L 105/57 L Pulse Oximetry 94 97 Oxygen Delivery Intake/Output Intake/Output: Intake & Output 12/20/24 12/21/24 12/22/24 12/23/24 23:59 23:59 23:59 23:59 Intake Total 1072 1736 100 Output Total 400 Balance 1072 1336 100 Meds/Results Medications: Active Medications Generic Name Dose Route Start Last Admin Trade Name Freq PRN Reason Stop Dose Admin Acetaminophen 650 mg 12/21/24 07:43 Acetaminophen 325 Mg Tablet PO Q4H PRN Mild Pain (1-3) or Fever Buprenorphine HCl 2 mg 12/21/24 14:00 12/23/24 08:51 Buprenorphine Hcl (*Crx) 2 Mg Sublingual Tablet SUBLINGUAL 2 mg DAILY PATRICIO Administration Bupropion HCl 300 mg 12/21/24 09:00 12/23/24 08:51 Bupropion Hcl Xl (24 Hr) 150 Mg Tabcr PO 300 mg DAILY PATRICIO Administration Diclofenac Sodium 1 applic 12/22/24 17:48 Diclofenac Sodium 1% 100 Gm Gel (*Bkc) TOPICAL QID PRN muscle pain Enoxaparin Sodium 40 mg 12/21/24 09:00 12/23/24 08:50 Enoxaparin 40 Mg/0.4 Ml Syringe SUB-Q 40 mg DAILY PATRICIO Administration Hydroxyzine HCl 50 mg 12/21/24 21:00 12/22/24 21:48 Hydroxyzine Hcl 25 Mg Tablet PO 50 mg HS PATRICIO Administration Methylprednisolone Sodium 116 mls @ 200 mls/hr 12/22/24 08:00 12/23/24 08:50 Succinate 1,000 mg/ Dextrose IVPB 12/26/24 08:35 200 mls/hr Q24H PATRICIO Administration Lactase 3,000 unit 12/21/24 07:44 12/22/24 08:10 Lactase 3,000 Unit Tablet PO 3,000 unit QID PRN Administration Lactose Intolerance Lidocaine 2 patch 12/22/24 18:00 12/22/24 18:35 Lidocaine 5% Patch TRANSDERM 2 patch DAILY PATRICIO Administration Ondansetron HCl 4 mg 12/21/24 02:21 Ondansetron Inj 4 Mg/2 Ml Vial IV PUSH Q4H PRN Nausea Oxcarbazepine 150 mg 12/22/24 21:00 12/22/24 21:47 Oxcarbazepine 150 Mg Tablet PO 150 mg HS PATRICIO Administration Pantoprazole Sodium 40 mg 12/21/24 09:00 12/23/24 08:51 Pantoprazole 40 Mg Tablet PO 40 mg Q12HR PATRICIO Administration Prazosin HCl 1 mg 12/21/24 21:00 12/22/24 21:47 Prazosin Hcl 1 Mg Capsule PO 1 mg HS PATRICIO Administration Pregabalin 200 mg 12/21/24 09:00 12/23/24 08:50 Pregabalin (*Crx) 50 Mg Capsule PO 200 mg BID PATRICIO Administration Pregabalin 100 mg 12/22/24 21:00 12/22/24 21:48 Pregabalin (*Crx) 50 Mg Capsule PO 100 mg HS PATRICIO Administration Propranolol HCl 10 mg 12/21/24 21:00 12/22/24 21:46 Propranolol Hcl 10 Mg Tablet PO 10 mg HS PATRICIO Administration Propranolol HCl 30 mg 12/22/24 09:00 12/23/24 08:52 Propranolol Hcl 10 Mg Tablet PO 30 mg QAM PATRICIO Administration Ropinirole HCl 0.125 mg 12/22/24 21:00 12/22/24 21:47 Ropinirole Hcl 0.125 Mg Tablet PO 0.125 mg HS PATRICIO Administration Senna 8.6 mg 12/21/24 07:44 Sennosides 8.6 Mg Tablet PO BID PRN Constipation Simethicone 125 mg 12/21/24 07:44 12/22/24 08:10 Simethicone 125 Mg Chew Tab PO 125 mg DAILY PRN Administration Abdominal Distention Sumatriptan Succinate 50 mg 12/22/24 07:51 Sumatriptan Succinate 25 Mg Tablet PO PRN PRN Migraine Headache Topiramate 25 mg 12/21/24 21:00 12/22/24 21:47 Topiramate 25 Mg Tablet PO 25 mg HS PATRICIO Administration Trazodone HCl 100 mg 12/21/24 21:00 12/22/24 21:47 Trazodone Hcl 50 Mg Tablet PO 100 mg HS PATRICIO Administration Radiology Results: ITS Impressions Head CT 12/21/24 05:14 IMPRESSION: 1. No acute intracranial findings. Labs Labs: Laboratory Results - last 24 hr 12/23/24 05:35 WBC 13.1 H RBC 3.42 L Hgb 10.6 L Hct 32.8 L MCV 95.9 MCH 31.0 MCHC 32.3 RDW 13.2 Plt Count 269 MPV 9.4 Immature Gran % (Auto) 0.5 Neut % (Auto) 83.8 H Lymph % (Auto) 7.7 L Cottle % (Auto) 8.0 Eos % (Auto) 0.0 Baso % (Auto) 0.0 L Lymph # (Auto) 1.00 Cottle # (Auto) 1.0 H Eos # (Auto) 0.0 Baso # (Auto) 0.0 Abs Immat Gran (auto) 0.07 H Absolute Neuts (auto) 10.9 H Absolute Nucleated RBC 0.000 Nucleated RBC % 0.0 Sodium 137 Potassium 3.4 Chloride 105 Carbon Dioxide 25 Anion Gap 7 BUN 13 Creatinine 0.77 Estim Creat Clear Calc 63 Estimated GFR > 60 Glucose 122 H Calcium 8.0 L Total Bilirubin 0.1 L AST 17 ALT 17 Alkaline Phosphatase 63 Total Protein 5.6 L Albumin 3.2 L Quality VTE Prophylaxis VTE prophylaxis: pharmacologic ordered
--- NOTE | 2024-12-23 14:39 | P.TS_ITS ---
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 Jean Baptiste that patient is okay for him to consult on her, she saw him many years ago she says Reason for consultation: left optic neuritis Has provider been notified: Yes DS: Admitting Diagnosis Discharge Date 12/23/2024 Admitting Diagnosis left optic neuritis DS: Discharge Diagnosis Discharge Diagnosis (1) Left optic neuritis: Code(s): H46.9 - Unspecified optic neuritis Status: Acute Assessment and Plan: Neurology was consulted asked nurse to obtain records [facility] related to patients neurology notes, MRI brain, LP procedures and results eye patch PRN for comfort continue solu medrol 1 gram Q 24 hours x 5 doses, last dose Wednesday discussed with neurology Dr. Cox consult Dr. Jean Baptiste when he takes over call per patient request (2) Exacerbation of multiple sclerosis: Code(s): G35.D - Multiple sclerosis, unspecified Status: Acute Assessment and Plan: see above (3) PTSD (post-traumatic stress disorder): Code(s): F43.10 - Post-traumatic stress disorder, unspecified Status: Acute Assessment and Plan: continue home medications including bupropion, hydroxyzine, oxcarbazepine, prazosin, propranolol, topiramate and trazodone monitor moods and behaviors (4) RLS (restless legs syndrome): Code(s): G25.81 - Restless legs syndrome Status: Acute Assessment and Plan: started on ropinirole monitor Transfer Discharge Sum: Med Medications Active and Home Medications: Home Medications buprenorphine 2 mg-naloxone 0.5 mg sublingual tablet 1 tablet sublingual DAILY 12/21/24 [History Confirmed 12/21/24] bupropion HCl 300 mg 24 hr tablet, extended release (Wellbutrin XL) 300 mg PO DAILY 12/21/24 [History Confirmed 12/21/24] glatiramer 20 mg/mL subcutaneous syringe (Copaxone) 20 mg subcut 3XW 12/21/24 [History Confirmed 12/21/24] hydroxyzine HCl 50 mg tablet 50 mg PO HS 12/21/24 [History Confirmed 12/21/24] lactase 3,000 unit tablet 3,000 unit PO QID PRN lactose intolerance 12/21/24 [History Confirmed 12/21/24] ondansetron HCl 8 mg tablet 8 mg PO Q8H PRN nausea and vomiting 12/21/24 [History Confirmed 12/21/24] oxcarbazepine 150 mg tablet 150 mg PO HS 12/21/24 [History Confirmed 12/21/24] pantoprazole 40 mg tablet,delayed release (Protonix) 40 mg PO BID 12/21/24 [History Confirmed 12/21/24] prazosin 1 mg capsule 1 mg PO HS 12/21/24 [History Confirmed 12/21/24] pregabalin 100 mg capsule (Lyrica) 100 mg PO HS 12/21/24 [History Confirmed 12/21/24] pregabalin 200 mg capsule (Lyrica) 200 mg PO BID 12/21/24 [History Confirmed 12/21/24] prochlorperazine maleate 10 mg tablet (Compazine) 10 mg PO Q8H PRN nausea and vomiting 12/21/24 [History Confirmed 12/21/24] propranolol 10 mg tablet 30 mg PO QAM 12/21/24 [History Confirmed 12/21/24] propranolol 20 mg tablet 10 mg PO HS 12/21/24 [History Confirmed 12/21/24] sennosides 8.6 mg tablet (Senokot) 8.6 mg PO BID PRN constipation 12/21/24 [History Confirmed 12/21/24] simethicone 125 mg capsule (Gas Relief (simethicone)) 125 mg PO DAILY PRN abdominal distention 12/21/24 [History Confirmed 12/21/24] sumatriptan succinate 50 mg PO PRN PRN migraine headache 12/21/24 [History Confirmed 12/21/24] topiramate 25 mg tablet (Topamax) 25 mg PO HS 12/21/24 [History Confirmed 12/21/24] trazodone 100 mg tablet 100 mg PO HS 12/21/24 [History Confirmed 12/21/24] Active Medications Acetaminophen (Acetaminophen 325 Mg Tablet) 650 mg PO Q4H PRN PRN Reason: Mild Pain (1-3) or Fever Buprenorphine HCl (Buprenorphine Hcl (*Crx) 2 Mg Sublingual Tablet) 2 mg SUBLINGUAL DAILY [facility] Last Admin: 12/23/24 08:51 Dose: 2 mg Bupropion HCl (Bupropion Hcl Xl (24 Hr) 150 Mg Tabcr) 300 mg PO DAILY [facility] Last Admin: 12/23/24 08:51 Dose: 300 mg Diclofenac Sodium (Diclofenac Sodium 1% 100 Gm Gel (*Bkc)) 1 applic TOPICAL QID PRN PRN Reason: muscle pain Enoxaparin Sodium (Enoxaparin 40 Mg/0.4 Ml Syringe) 40 mg SUB-Q DAILY [facility] Last Admin: 12/23/24 08:50 Dose: 40 mg Hydroxyzine HCl (Hydroxyzine Hcl 25 Mg Tablet) 50 mg PO HS [facility] Last Admin: 12/22/24 21:48 Dose: 50 mg Methylprednisolone Sodium (Succinate 1,000 mg/ Dextrose) 116 mls @ 200 mls/hr IVPB Q24H [facility] Stop: 12/26/24 08:35 Last Admin: 12/23/24 08:50 Dose: 200 mls/hr Lactase (Lactase 3,000 Unit Tablet) 3,000 unit PO QID PRN PRN Reason: Lactose Intolerance Last Admin: 12/22/24 08:10 Dose: 3,000 unit Lidocaine (Lidocaine 5% Patch) 2 patch TRANSDERM DAILY [facility] Last Admin: 12/23/24 09:12 Dose: Not Given Ondansetron HCl (Ondansetron Inj 4 Mg/2 Ml Vial) 4 mg IV PUSH Q4H PRN PRN Reason: Nausea Oxcarbazepine (Oxcarbazepine 150 Mg Tablet) 150 mg PO HS [facility] Last Admin: 12/22/24 21:47 Dose: 150 mg Pantoprazole Sodium (Pantoprazole 40 Mg Tablet) 40 mg PO Q12HR [facility] Last Admin: 12/23/24 08:51 Dose: 40 mg Prazosin HCl (Prazosin Hcl 1 Mg Capsule) 1 mg PO HS [facility] Last Admin: 12/22/24 21:47 Dose: 1 mg Pregabalin (Pregabalin (*Crx) 50 Mg Capsule) 200 mg PO BID [facility] Last Admin: 12/23/24 08:50 Dose: 200 mg Pregabalin (Pregabalin (*Crx) 50 Mg Capsule) 100 mg PO [facility] Last Admin: 12/22/24 21:48 Dose: 100 mg Propranolol HCl (Propranolol Hcl 10 Mg Tablet) 10 mg PO [facility] Last Admin: 12/22/24 21:46 Dose: 10 mg Propranolol HCl (Propranolol Hcl 10 Mg Tablet) 30 mg PO [facility] Last Admin: 12/23/24 08:52 Dose: 30 mg Ropinirole HCl (Ropinirole Hcl 0.125 Mg Tablet) 0.125 mg PO [facility] Last Admin: 12/22/24 21:47 Dose: 0.125 mg Senna (Sennosides 8.6 Mg Tablet) 8.6 mg PO BID PRN PRN Reason: Constipation Simethicone (Simethicone 125 Mg Chew Tab) 125 mg PO DAILY PRN PRN Reason: Abdominal Distention Last Admin: 12/22/24 08:10 Dose: 125 mg Sumatriptan Succinate (Sumatriptan Succinate 25 Mg Tablet) 50 mg PO PRN PRN PRN Reason: Migraine Headache Topiramate (Topiramate 25 Mg Tablet) 25 mg PO [facility] Last Admin: 12/22/24 21:47 Dose: 25 mg Trazodone HCl (Trazodone Hcl 50 Mg Tablet) 100 mg PO [facility] Last Admin: 12/22/24 21:47 Dose: 100 mg Transfer Discharge Sum: Hosp Hospital Course Hospital course: Rasheeda Vásquez is a 49 year old female was admitted due to left eye vision changes. Patient has MS and reports she was [facility] the [facility] a [facility] for left optic neuritis. Neurology was consulted. Patient was given IV solu- medrol 1 gram x 5 days. Last dose was planned for Wednesday. Patient had complaints of restless leg syndrome at night and was started on ropinirole during hospitalization. Patients records were requested from the [facility], have not arrived at this time. Patient had requested a transfer to the [facility] when she arrived and she was accepted and assigned a bed today. Patient will be transferred to the [facility]. Report given to accepting physician via phone. Patient Condition: Stable Time Spent with Patient Time attestation: Total time spent providing and/or coordinating transfer services: 40 Minutes Exam Const: General: comfortable and no acute distress HENMT: Face/Nose/Sinus: Normal nares present Mouth: Yes moist mucous membranes Eyes: General: appearance normal, both eyes and all related structures Sclera: sclerae normal Neck: Neck: supple Resp: Effort & Inspection: normal respiratory effort Auscultation: clear to auscultation bilaterally Cardio: Rate: regular rate Rhythm: regular rhythm GI: GI Palp: Yes Soft to palpation Auscultation: normal bowel sounds Skin: General skin exam: normal color and no rashes or lesions noted Neuro: General: gait normal Speech: normal speech Motor exam (neuro): 5/5 motor strength present throughout Sensory Exam: normal sensation Extrem: General: normal to inspection Psych: Mental Status: mental status grossly normal Affect: Anxious affect present DS: Data Data Completed and Pending Labs on day of discharge: Labs from last 24 hours 12/23/24 05:35 WBC 13.1 H RBC 3.42 L Hgb 10.6 L Hct 32.8 L MCV 95.9 MCH 31.0 MCHC 32.3 RDW 13.2 Plt Count 269 MPV 9.4 Immature Gran % (Auto) 0.5 Neut % (Auto) 83.8 H Lymph % (Auto) 7.7 L [place] % (Auto) 8.0 Eos % (Auto) 0.0 Baso % (Auto) 0.0 L Lymph # (Auto) 1.00 [place] # (Auto) 1.0 H Eos # (Auto) 0.0 Baso # (Auto) 0.0 Abs Immat Gran (auto) 0.07 H Absolute Neuts (auto) 10.9 H Absolute Nucleated RBC 0.000 Nucleated RBC % 0.0 Sodium 137 Potassium 3.4 Chloride 105 Carbon Dioxide 25 Anion Gap 7 BUN 13 Creatinine 0.77 Estim Creat Clear Calc 63 Estimated GFR > 60 Glucose 122 H Calcium 8.0 L Total Bilirubin 0.1 L AST 17 ALT 17 Alkaline Phosphatase 63 Total Protein 5.6 L Albumin 3.2 L
[2024-12-23 14:55] VITALS: BP 105/61; PULSE 61; RESP 20; TEMP 36.2; O2SAT 96
[2024-12-23 19:27] VITALS: BP 108/58; PULSE 73; RESP 20; TEMP 36.7; O2SAT 100
[2024-12-23] MEDS: TOPIRAMATE 25 MG TABLET PO (20:52)
[2024-12-23] MEDS: rOPINIRole HCL 0.125 MG TABLET PO (20:52)
[2024-12-23] MEDS: PREGABALIN (*CRX) 50 MG CAPSULE 100 MG PO (20:53)
[2024-12-23 20:54] VITALS: PULSE 64
[2024-12-23] MEDS: PRAZOSIN HCL 1 MG CAPSULE PO (20:54)
[2024-12-23] MEDS: PROPRANOLOL HCL 10 MG TABLET PO (20:54)
== END 2024-12-23 21:00 | DRG 59 ==
LOC: ANHED 12-21 02:24 → ANH3MED 12-21 03:33
PROVIDERS: Admitting Provider Family Medicine; Emergency Provider Emergency Medicine; Visit Provider Nurse Practitioner Adult Health
DX: G35.D Multiple sclerosis, unspecified (principal); H46.8 Other optic neuritis; G25.81 Restless legs syndrome; F43.10 Post-traumatic stress disorder, unspecified; F17.290 Nicotine dependence, other tobacco product, uncomplicated; Z79.52 Long term (current) use of systemic steroids
CPT/HCPCS: 36415; 70450; 80053; 81001; 83735; 85025; 85652; 86140; 96365; 96372; 96374; 97161; 97530; 99285; A9270; G0378; J1650; J2919